=== PATIENT | male | born 1985 | race Caucasian/White ===

== ENCOUNTER 2016-12-13 19:53 | Inpatient (IN) | payer BC, OTHER ==
[~2016-12-13] VITALS: Ht 175.3 cm; Wt 77.1 kg
[2016-12-15] MEDS ORDERED: HYDROXYZINE PAMOATE 25 MG CAPSULE PO PRN (03:00)
[2016-12-15] MEDS ORDERED: CLONIDINE HCL 0.1 MG TABLET PO PRN (03:00)
[2016-12-15] MEDS ORDERED: BUPRENORPHINE HCL 2 MG TAB.SUBL SL PRN (03:00)
[2016-12-15] MEDS ORDERED: diphenhydrAMINE 50 MG CAPSULE PO PRN (03:00)
[2016-12-15] MEDS ORDERED: LOPERAMIDE HCL 2 MG CAPSULE PO PRN ×2 (03:00)
[2016-12-15] MEDS ORDERED: ONDANSETRON ODT 4 MG TAB.RAPDIS SL PRN (03:00)
[2016-12-15] MEDS ORDERED: MAG HYDROX/AL HYDROX/SIMETH 30 ML LIQUID UDC PO PRN (03:00)
[2016-12-15] MEDS ORDERED: ACETAMINOPHEN 325 MG TABLET PO PRN (03:00)
[2016-12-15] MEDS ORDERED: METHOCARBAMOL 750 MG TABLET PO PRN (03:00)
[2016-12-15] MEDS ORDERED: IBUPROFEN 400 MG TABLET PO PRN (03:00)
[2016-12-15] MEDS ORDERED: MAGNESIUM HYDROXIDE 30 ML LIQUID UDC PO PRN (03:00)
--- NOTE | 2016-12-15 03:30 | NUR ---
ADMISSION NOTE Pt arrived to the [facility] 3rd floor [facility] at approximately 0220. Pt is a 31 y/o male ( born on 1985) being admitted for Heroin, Methamphetamine, and Marijuana dependence and use. Pt has NKA and denies any PMH. Pt is unmarried and without children. Pt denies having a psych doctor but reported having a primary care physician (Dr. Hays at [facility]). 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 Pt also reported having some college background. Pt was asked about his substance use history including; what substances he uses, for how long he has being using them, what route, what amount, what frequency, and the date and amount of the last use of each substance. Pt stated " I use Heroin every day. I've used needles before, but not this time. I've only been smoking it. I've been smoking about half a gram (0.5 gram) for the past 3 weeks. I smoked 0.1 gram before I came here today(12/15/16). I use Meth occasionally, but not everyday. Since my recent relapse, I've only smoked it about twice. The last time I had it was the day before yesterday (12/13/16). I smoke weed; but not every day. I can't even tell you how much weed I smoke because it's not much. I don't remember the last time I had it. I only relapsed 3 weeks ago, so I haven't been using a lot of anything." Upon assessment pt is a/o x 4 with no changes in LOC. Pt's skin is dry and intact with no lesions, lacerations, bruises, or abrasions noted. PERRLA noted. Hand web search evaluator strong bilaterally. Skin turgor indicates proper hydration. Lung auscultations clear in all lobes, no SOB noted or reported. Bowel sounds present in all quadrants. Abdomen soft and non distended. Pt denies any pain/discomfort at this time. Pt is encouraged to notify staff of any changes in condition or of any concerns. Pt verbalized an understanding. All safety measures in place; side rails up x 2, bed locked and in low position, and call light is within reach. Will continue to monitor.
[2016-12-15 03:40] LABS: *AMPHETAMINE, URINE POSITIVE (NEGATIVE); *BARBITURATE, URINE NEGATIVE (NEGATIVE); *CANNABINOID, URINE POSITIVE (NEGATIVE); *COCCAINE, URINE NEGATIVE (NEGATIVE); *OPIATE, URINE POSITIVE (NEGATIVE); *PHENCYCLIDINE SCREEN,URINE NEGATIVE (NEGATIVE)
[2016-12-15 04:00] VITALS: BP 148/86
--- NOTE | 2016-12-15 07:37 | NUR ---
END OF SHIFT NOTE Pt is a 31 y/o male admitted for Heroin, Meth, and Marijuana dependence and use. Pt has NKA and denies any PMH. Pt is not on a taper at this time, but has PRN medications available for any discomfort. Pt didn't receive any PRNS during the shift. Pt slept for a total of 3 hours. Last COW: 2 (0400). All safety measures in place. Endorsed to the oncoming nurse.
[2016-12-15 08:00] VITALS: BP 130/73
--- NOTE | 2016-12-15 08:10 | NUR ---
START OF SHIFT NOTE Received report from night nurse, 31 year old male admitted for Heroin, Meth, and Marijuana dependence. NKA /Full code/Regular diet. pt denies any PMH. Pt currently not on any taper at this time, but has PRN medications available for s/s of withdrawal.Per endorsement pt didn't receive any PRN'S, Pt slept for 3 hours. Last COW-2. Received pt alert & oriented x4.Breathing normal no SOB, Respiration even & unlabored. Abdomen soft & non-distended. No nausea/vomiting noted. Pt denies sweating and chills at this time. Pt denies SI/HI. Safety precautions are in place, call light within reach, side rails up x2, bed locked and in low position. Will continue to monitor.
[2016-12-15] MEDS: MULTIVITAMINS,THERAPEUTIC TABLET PO SCH (09:00)
--- NOTE | 2016-12-15 09:00 | NUR ---
REFUSED MED Pt refused Scheduled multi vitamin, offered x3 risk and benefits explained. Pt still refused. aware.
[2016-12-15 12:00] VITALS: BP 110/69
[2016-12-15] MEDS ORDERED: DICYCLOMINE HCL 20 MG TABLET PO PRN (13:00)
[2016-12-15 16:00] VITALS: BP 139/74
--- NOTE | 2016-12-15 18:49 | NUR ---
END OF SHIFT NOTE Gave re[port to night nurse, 31 year old male admitted for Heroin, Meth, and Marijuana dependence. NKA /Full code/Regular diet. pt denies any PMH. Pt currently not on any taper at this time, but has PRN medications available for s/s of withdrawal. During shift pt didn't receive any PRN'S,last COWS-1. Pt remained compliant with plan of care. Pt's total intake 855ml voided x1 with x1 BM. Safety precautions are in place, call light within reach, side rails up x2, bed locked and in low position. Will endorse pt to night nurse.
[2016-12-15 20:00] VITALS: BP 118/62
--- NOTE | 2016-12-15 20:00 | NUR ---
START OF SHIFT NOTE PATIENT IS A 31 YEAR OLD MALE, ADMITTED ON 12/15/16 FOR HEROIN/ METH/MARIJUANA DEPENDENCE. PATIENT IS FULL CODE, REGULAR DIET AND NO KNOWN ALLERGY. PATIENT DENIES ANY PAST MEDICAL HISTORY. NO SEIZURE HISTORY. PATIENT RELAPSED 3 WEEKS AGO. PATIENT IS ON HEROIN (INHALATION) 0.5 GRAMS FOR 6 YEARS, METH (INHALATION) "UNKNOWN " AMOUNT ON /OFF FOR 2 YEARS AND MARIJUANA (INHALATION) "UNKNOWN " AMOUNT FOR "UNKNOWN " TIME. ON FALL PRECAUTION. SKIN INTACT. PATIENT IS UNDER OBSERVATION. NOT ON TAPER. PRN MEDICATION AVAILABLE. PATIENT IN HIS ROOM. RESTING. RESPIRATION EVEN AND UNLABORED. DENIES ANY PAIN. NO N/V. PATIENT STATES HE WANTS TO SLEEP. SAFETY MEASURES IN PLACE. CALL LIGHT IN REACH. WILL CONTINUE TO MONITOR
[2016-12-16] VITALS: BP 118/64
--- NOTE | 2016-12-16 04:00 | NUR ---
COWS/VS PATIENT REFUSED VS. COWS UNABLE TO COMPLETE. RESPIRATION EVEN AND UNLABORED. RR 15. NO S/S OF DISTRESS. SAFETY MEASURES IN PLACE. CALL LIGHT IN REACH. WILL CONTINUE TO MONITOR.
--- NOTE | 2016-12-16 07:26 | NUR ---
END OF SHIFT NOTE PATIENT IS A 31 YEAR OLD MALE, ADMITTED ON 12/15/16 FOR HEROIN/ METH/MARIJUANA DEPENDENCE. PATIENT IS FULL CODE, REGULAR DIET AND NO KNOWN ALLERGY. PATIENT DENIES ANY PAST MEDICAL HISTORY. NO SEIZURE HISTORY. PATIENT RELAPSED 3 WEEKS AGO. PATIENT IS ON HEROIN (INHALATION) 0.5 GRAMS FOR 6 YEARS, METH (INHALATION) "UNKNOWN " AMOUNT ON /OFF FOR 2 YEARS AND MARIJUANA (INHALATION) "UNKNOWN " AMOUNT FOR "UNKNOWN " TIME. ON FALL PRECAUTION. SKIN INTACT. PATIENT IS UNDER OBSERVATION. NOT ON TAPER. PRN MEDICATION AVAILABLE. SKIN INTACT . PATIENT IN HIS ROOM. RESTING. RESPIRATION EVEN AND UNLABORED. DENIES ANY PAIN. NO N/V. PATIENT STATES HE WANTS TO SLEEP. PATIENT IN HIS ROOM MOST OF THE SHIFT. PATIENT DID NOT REQUIRE ANY PRN MEDICATION DURING SHIFT. SAFETY MEASURES IN PLACE. CALL LIGHT IN REACH. WILL CONTINUE TO MONITOR. PATIENT SLEPT 10 HOURS. FLUID INTAKE 355 ML. VOIDED X 1 . NO BM. LAST COWS 0.
--- NOTE | 2016-12-16 07:27 | NUR ---
Start Of Shift Patient is a 31 year old male, admitted on 12/15/16 for heroin/ meth/marijuana dependence. Patient is full code, regular diet on fall precautions denies any food or drug allergies. Patient denies any past medical history. No seizure history. Patient relapsed 3 weeks ago. Skin intact. Patient is under observation. Pt is not on a taper but has PRN medications in case of withdrawals. Skin intact . Patient did not request nor receive any PRN medications last night per retail shift manager nurse. Pts last COWS was a 0 taken at 0400. Pt slept a total of 10 hours last night. All safety measures in place, call light within reach, bed in lowest locked position, will continue to monitor and provide support.
[2016-12-16 08:00] VITALS: BP 112/69
[2016-12-16] MEDS ORDERED: TUBERCULIN,PURIF.PROT.DERIV. 5 TU/0.1 ML TEST ID ONE (09:00)
[2016-12-16] MEDS: MULTIVITAMINS,THERAPEUTIC TABLET PO SCH (09:00)
[2016-12-16 12:00] VITALS: BP 132/87
[2016-12-16 16:00] VITALS: BP 130/78
--- NOTE | 2016-12-16 19:17 | NUR ---
Start Of Shift Patient is a 31 year old male, admitted on 12/15/16 for heroin/ meth/marijuana dependence. Patient is full code, regular diet on fall precautions denies any food or drug allergies. Patient denies any past medical history. No seizure history. Patient relapsed 3 weeks ago. Skin intact. Patient is under observation. Pt is not on a taper but has PRN medications in case of withdrawals. Skin intact . Patient did not request nor receive any PRN medications. Pts last COWS was a 2 taken at 1600. Pt participated in some activities and groups. Pt stated that the medications are working well at controlling the withdrawal symptoms, evidenced by low assessment scores during the day ranging from 3-2. Pt ate all of his meals. Pt remains compliant with the treatment plan. Pts vital signs within normal limits, A/Ox4, denies chest pain. Respirations even unlabored, lungs clear upon auscultation abdomen soft and non- distended. Pt denies nausea, vomiting and diarrhea. Pt total fluid intake was 500ml with 1 voids and 1 stool. Safety measures in place, call light within reach. All pertinent information discussed with clinical study manager, endorsement given to clinical study manager nurse.
--- NOTE | 2016-12-16 19:18 | NUR ---
Start of shift note Received report from day shift nurse. Pt is a 31 yo male, A+Ox4, presenting to [facility] for Opiate/Meth dependence. Pt has NKA, is Full Code status, and on Regular diet. Pt is on Fall precautions. Pt is on PRN medications for observation. No ss/ of distress noted at this time. Respirations even and unlabored. Will continue to monitor.
[2016-12-16 20:03] VITALS: BP 120/59
--- NOTE | 2016-12-17 00:21 | NUR ---
V/S and COWS Refused V/S and COWS Refused. No s/s of distress noted at this time. Respirations even and unlabored. Will continue to monitor.
--- NOTE | 2016-12-17 04:34 | NUR ---
V/S and COWS Refused V/S and COWS Refused. No s/s of distress noted at this time. Respirations even and unlabored. Will continue to monitor.
--- NOTE | 2016-12-17 06:58 | NUR ---
End of shift note Pt is a 31 yo male, A+Ox4, presenting to [facility] for Opiate/Meth dependence. Pt has NKA, is Full Code status, and on Regular diet. Pt is on Fall precautions. Pt is on PRN medications for observation. Pt slept for a total of 10 HRS. Last COWS: 0 @2000. No s/s of distress noted at this time. Respirations even and unlabored. Will endorse to day shift nurse.
--- NOTE | 2016-12-17 07:15 | NUR ---
START OF SHIFT NOTE: RECEIVED PT FROM CLINICAL DOCUMENTATION MANAGER NURSE, PT IS IN STABLE CONDITION AT THIS TIME,ALERT AND ORIENTED LAST COWS IS 0 AND SLEPT FOR 10 HRS. PT IS ADMITTED TO [facility] FOR OPIATE AND METH WITHDRAWAL.WILL CONTINUE TO MONITOR PT AND CONTINUE TO MEET PTS NEEDS
[2016-12-17 09:00] VITALS: BP 112/59
[2016-12-17] MEDS: MULTIVITAMINS,THERAPEUTIC TABLET PO SCH (09:00)
[2016-12-17 13:32] VITALS: BP 111/57
--- NOTE | 2016-12-17 13:50 | NUR ---
PRN ROBAXIN WAS ADMINISTERED PT WITH COMPLAINTS OF MUSCLE STIFFNESS AND PAIN. PAIN SCALE 7/10. WILL CONTINUE TO MONITOR PT FOR ANY CHANGES AND REASSESS PT FOR EFFECTIVENESS
--- NOTE | 2016-12-17 14:30 | NUR ---
PRN RE-ASSESSMENT:PT VERBALIZED MEDICATION WAS EFFECTIVE, PAIN LEVEL AND DISCOMFORT 2
[2016-12-17] MEDS ORDERED: BACLOFEN 20 MG TABLET PO PRN (15:00)
[2016-12-17] MEDS ORDERED: HYDR-3895 PO (16:25)
[2016-12-17] MEDS ORDERED: DIPH50CA37 PO (16:25)
[2016-12-17] MEDS ORDERED: Baclofen PO (16:25)
[2016-12-17] MEDS ORDERED: DICY20TA28 PO (16:25)
[2016-12-17 17:01] VITALS: BP 108/68
--- NOTE | 2016-12-17 19:10 | NUR ---
END OF SHIFT NOTE:PT IS A 31 YEAR OLD MALE WHO IS ALERT AND ORIENTED AT THIS TIME. PT IS IN STABLE CONDITION. [facility] FOR OPIATE/METH WITHDRAWAL/DEPENDENCE. PT IS SET FOR DISCHARGE TOMORROW, PT IS MEDICALLY STABLE FOR DISCHARGE. PT'S LAST COWS IS 1 WILL ENDORSE PT TO TRANSPORT ENGINEER NURSE.
--- NOTE | 2016-12-17 19:17 | NUR ---
Start of shift note Received report from day shift nurse. Pt is a 31 yo male, A+Ox4, presenting to [facility] for Opiate/Meth dependence. Pt has NKA, is Full Code status, and on Regular diet. Pt is on Fall precautions. Pt is on PRN medications for observation. Pt is due for discharge tomorrow. No s/s of distress noted at this time. Respirations even and unlabored. Will continue to monitor.
--- NOTE | 2016-12-17 20:43 | NUR ---
PRN Benadryl Pt c/o inability to sleep and requested for PRN Benadryl. Medication given and tolerated well. Will reassess within 1 HR. Will continue to monitor.
[2016-12-17 20:45] VITALS: BP 107/69
--- NOTE | 2016-12-17 21:24 | NUR ---
PRN Benadryl Reassessment Medication effective. No s/s of ASE/distress noted at this time. Respirations even and unlabored. Will continue to monitor.
[2016-12-17 22:15] LABS: *AMPHETAMINE, URINE NEGATIVE (NEGATIVE); *BARBITURATE, URINE NEGATIVE (NEGATIVE); *CANNABINOID, URINE NEGATIVE (NEGATIVE); *COCCAINE, URINE NEGATIVE (NEGATIVE); *OPIATE, URINE POSITIVE (NEGATIVE); *PHENCYCLIDINE SCREEN,URINE NEGATIVE (NEGATIVE)
--- NOTE | 2016-12-18 00:20 | NUR ---
V/S and COWS Refused V/S and COWS Refused. No s/s of distress noted at this time. Respirations even and unlabored. Will continue to monitor.
--- NOTE | 2016-12-18 04:40 | NUR ---
V/S and COWS Refused V/S and COWS Refused. No s/s of distress noted at this time. Respirations even and unlabored. Will continue to monitor.
--- NOTE | 2016-12-18 07:08 | NUR ---
End of shift note Pt is a 31 yo male, A+Ox4, presenting to [facility] for Opiate/Meth dependence. Pt has NKA, is Full Code status, and on Regular diet. Pt is on Fall precautions. Pt is on PRN medications for observation. Pt is due for discharge today. Pt slept for a total of 8 HRS. Last COWS: 0 @2000. No s/s of distress noted at this time. Respirations even and unlabored. Will endorse to day shift nurse.
--- NOTE | 2016-12-18 07:11 | NUR ---
start of shift note: received pt from horticultural farmer nurse, pt is in stable condition at this time. no s/s of pain or discomfort. pt is admitted to [facility] for opiate/meth withdrawal/ dependence. pt is set to discharge today. pt slept for 8 hers and last COWS was 0. will assist pt in discharging and will continue to monitor pt for any changes.
[2016-12-18 08:14] VITALS: BP 128/84
[2016-12-18] MEDS: MULTIVITAMINS,THERAPEUTIC TABLET PO SCH (08:23)
--- NOTE | 2016-12-18 09:03 | NUR ---
discharge note: pt left the unit in stable condition, no s/s of pain, discomfort or any withdrawal symptoms. pt teaching was administered and pt verbalized understanding. pt left with all personal belongings and V/S stable and WNL. pt will be transferred home via uber
== END 2016-12-18 09:03 | disposition home or self-care (01) | DRG 895 ==
LOC: SRC 12-15 01:20
PROVIDERS: ADMIT Internal Medicine; ATTEND Internal Medicine
PROC: HZ2ZZZZ Detoxification Services for Substance Abuse Treatment (ICD-10-PCS; principal; 2016-12-15)
PROC: HZ31ZZZ Individual Counseling for Substance Abuse Treatment, Behavioral (ICD-10-PCS; 2016-12-17)
DX: F11.23 Opioid dependence with withdrawal (principal); Z83.3 Family history of diabetes mellitus; Z81.3 Family history of other psychoactive substance abuse and dependence; F17.210 Nicotine dependence, cigarettes, uncomplicated; D64.9 Anemia, unspecified; F12.90 Cannabis use, unspecified, uncomplicated
CPT/HCPCS: 70030-TC; 71010; 80307; 80324; 80349; 80361; A4663; Q0163